=== PATIENT | male | born 1950 | race Caucasian/White ===

== ENCOUNTER → 2020-11-06 | Outpatient (CLI) | payer OTHER | END | disposition home or self-care (01) | LOC: COVID19 13:40 | PROVIDERS: ATTEND Internal Medicine | DX: U07.1 COVID-19 (principal) ==

== ENCOUNTER 2025-05-03 14:40 | Emergency (ER) | payer OTHER ==
[~2025-05-03] VITALS: Ht 177.8 cm; Wt 98.9 kg
[2025-05-03] MEDS ORDERED: APRESOLINE10 MG PO (14:51)
[2025-05-03] MEDS ORDERED: Sinemet Cr 50/21 TAB PO (14:51)
[2025-05-03] MEDS ORDERED: ROPINIROLE HYD0.5 MG PO (14:51)
[2025-05-03] MEDS ORDERED: FINASTERIDE5 M1 PO (14:52)
[2025-05-03] MEDS ORDERED: TIADYLT ER240 MG PO (14:52)
[2025-05-03] MEDS ORDERED: VITAMIN D31250 MC1 PO (14:52)
[2025-05-03] MEDS ORDERED: VALSARTAN-HCTZ1 EAC1 PO (14:53)
[2025-05-03] MEDS ORDERED: MECLIZINE HCL25 M2 PO (14:53)
== END 2025-05-03 16:45 | disposition home or self-care (01) ==
LOC: ED 14:40
DX: S73.192A Other sprain of left hip, initial encounter (principal); Z79.899 Other long term (current) drug therapy; Z98.890 Other specified postprocedural states; W18.39XA Other fall on same level, initial encounter; Y93.89 Activity, other specified; Y92.89 Other specified places as the place of occurrence of the external cause; Y99.8 Other external cause status

== ENCOUNTER 2025-08-09 18:49 | Emergency (ER) | payer OTHER ==
[~2025-08-09 18:49] MED LIST: APRESOLINE10 MG PO; FINASTERIDE5 M1 PO; MECLIZINE HCL25 M2 PO; ROPINIROLE HYD0.5 MG PO; Sinemet Cr 50/21 TAB PO; TIADYLT ER240 MG PO; VALSARTAN-HCTZ1 EAC1 PO; VITAMIN D31250 MC1 PO
[2025-08-14] MEDS ORDERED: APRESOLINE10 MG PO (00:07)
== END 2025-08-09 23:03 | disposition home or self-care (01) ==
LOC: ED 18:49
DX: S70.02XA Contusion of left hip, initial encounter (principal); M54.50 Low back pain, unspecified; E11.9 Type 2 diabetes mellitus without complications; Z79.899 Other long term (current) drug therapy; Z98.890 Other specified postprocedural states; W18.39XA Other fall on same level, initial encounter; Y93.89 Activity, other specified; Y92.89 Other specified places as the place of occurrence of the external cause; Y99.8 Other external cause status